=== PATIENT | male | born 1965 | race Caucasian/White ===

== ENCOUNTER 2020-08-25 06:52 | Outpatient (NON) | payer BC, SELFPAY ==
[2020-08-26 00:37] LABS: SARS-CoV-2 RNA PCR Positive
== END 2020-08-25 06:53 ==
PROVIDERS: PCP Family Medicine; Visit Provider Family Medicine
DX: U07.1 COVID-19 (principal)
CPT/HCPCS: C9803; U0003; U0005

== ENCOUNTER 2020-08-28 09:57 | Outpatient (RCR) | payer BC, SELFPAY ==
[2020-08-28] VITALS (9 sets, daily range): BP systolic 151–174; BP diastolic 89–107; PULSE 77–87; RESP 16–18; TEMP 36.3; O2SAT 96–98
[2020-08-28] MEDS: ACETAMINOPHEN 325 MG TABLET 650 MG PO (10:34)
[2020-08-28] MEDS: diphenhydrAMINE HCl CAP 25 MG CAPSULE PO (10:34)
== END 2020-08-28 14:01 | disposition home or self-care (01) ==
LOC: AMCINF 09:57
PROVIDERS: PCP Family Medicine; Visit Provider Family Medicine
DX: Z23 Encounter for immunization (principal); U07.1 COVID-19; E11.9 Type 2 diabetes mellitus without complications
CPT/HCPCS: A9270; J7050; M0239; Q0239